=== PATIENT | female | born 1970 | race Caucasian/White ===

== ENCOUNTER → 2020-01-05 | Outpatient (CLI) | payer OTHER ==
[~2020-01-05] MED LIST: CONTRAST GIVEN. MC PRN; IOHEXOL 240 MG/ML 50ML VIAL. PO ONE; IOHEXOL 300 MG/ML 100ML VIAL. IV ONE
--- NOTE | 2020-01-05 09:45 | RAD ---
CT of the abdomen with IV contrast today INDICATION: Abdominal pain. Diarrhea. Family history of ulcerative colitis. COMPARISON STUDY: None available. TECHNIQUE: Multidetector CT imaging of the abdomen and pelvis was performed following the administration of IV and enteric contrast. FINDINGS: Visualized lung bases are unremarkable. Solid viscera of the abdomen are within normal limits. There is no bowel obstruction. No free fluid or free air seen in the abdomen or pelvis. Enteric contrast extends through the transverse colon. Splenic flexure and more distal colon is unopacified with oral contrast somewhat limiting evaluation. Visualized stomach, small bowel, and colon demonstrate no acute abnormalities. Prior hysterectomy noted. Limited evaluation of the bladder is unremarkable. No acute osseous changes are seen. IMPRESSION: No evidence of acute intra-abdominal abnormality CT DOSING PQRS STATEMENT: One or more of the following individualized dose reduction techniques were utilized for this examination: 1. Automated exposure control 2. Adjustment of the mA and/or kV according to patient size 3. Use of iterative reconstruction technique Electronically signed by: Mor Solis MD (01/05/2020 9:42 AM) [id number]
== END | disposition home or self-care (01) ==
LOC: CT 07:36
PROVIDERS: ATTEND Family Medicine
DX: R19.7 Diarrhea, unspecified (principal); R10.9 Unspecified abdominal pain; Z90.710 Acquired absence of both cervix and uterus; Z83.79 Family history of other diseases of the digestive system
CPT/HCPCS: 74177; Q9966; Q9967

== ENCOUNTER → 2021-06-12 | Outpatient (CLI) | payer OTHER ==
--- NOTE | 2021-06-12 09:24 | KCIC ---
MR LUMBAR SPINE [id number] History: Reason: RIGHT LEG WEAKNESS, LOW BACK PAIN / Spl. Instructions: / History: Pt fell a few mon ths ago. LBP into right side of pelvis. RLE weakness. Technique: Multiplanar, multi sequential MR imaging was performed of the lumbar spine. Comparison: None Findings: Normal vertebral body height and alignment. No fracture. Degenerative endplate edema L4-L5. Conus terminates at the normal location. No evidence of nerve root clumping. Sacral Tarlov cysts. T12-L1: Small right paracentral disc protrusion. No canal or neuroforaminal narrowing. L1-L2: No canal or neuroforaminal narrowing. L2-L3: Minimal disc bulge. Mild facet arthropathy. No canal or neuroforaminal narrowing. L3-L4: Small disc bulge. Mild facet arthropathy. No canal or neuroforaminal narrowing. L4-L5: Broad-based disc bulge with central disc protrusion extending inferiorly. Mild canal narrowin g. Subarticular recess narrowing. Abutment of the bilateral descending L5 nerve roots within the suba rticular recess, right greater than left. Slight abutment of the descending right S1 nerve root. Mode rate facet arthropathy. Ligament of flavum thickening. Mild bilateral neuroforaminal narrowing. L5-S1: No canal or neuroforaminal narrowing. Mild facet arthropathy. Impression: 1. Multilevel lumbar spondylosis most prominent L4-5 with degenerative endplate edema. 2. L4-5 subarticular recess narrowing with abutment of descending L5 nerve roots, right greater than left. Correlate for radiculopathy. Electronically signed by: Josh Hewitt DO (06/12/2021 9:22 AM) [id number]
== END ==
LOC: KCIC MRI 08:01
PROVIDERS: ATTEND Family Medicine
DX: M47.27 Other spondylosis with radiculopathy, lumbosacral region (principal); M51.25 Other intervertebral disc displacement, thoracolumbar region; M48.061 Spinal stenosis, lumbar region without neurogenic claudication; M62.81 Muscle weakness (generalized)
CPT/HCPCS: 72148